=== PATIENT | female | born 1990 | race Caucasian/White ===

== ENCOUNTER → 2025-03-28 13:26 | Outpatient (REF) | payer OTHER, SELFPAY | LOC: PNTC 13:26 | PROVIDERS: ATTENDING PHYSICIAN Obstetrics & Gynecology | DX: O09.529 Supervision of elderly multigravida, unspecified trimester (principal) | CPT/HCPCS: 59025; 76815 ==

== ENCOUNTER → 2025-04-04 13:17 | Outpatient (REF) | payer OTHER, SELFPAY | LOC: PNTC 13:17 | PROVIDERS: ATTENDING PHYSICIAN Obstetrics & Gynecology | DX: O09.529 Supervision of elderly multigravida, unspecified trimester (principal) | CPT/HCPCS: 59025; 76815 ==

== ENCOUNTER → 2025-04-11 13:43 | Outpatient (REF) | payer OTHER, SELFPAY | LOC: PNTC 13:43 | PROVIDERS: ATTENDING PHYSICIAN Obstetrics & Gynecology | DX: O09.529 Supervision of elderly multigravida, unspecified trimester (principal); O09.813 Supervision of pregnancy resulting from assisted reproductive technology, third trimester | CPT/HCPCS: 59025; 76816 ==

== ENCOUNTER 2025-04-14 03:39 | Inpatient (IN) | payer OTHER, SELFPAY ==
[2025-04-14] MEDS: LR 1000 IV ×2 (04:20→18:55)
[2025-04-14 04:25] VITALS: BP 132/84; BMI 29.8
[2025-04-14 04:49] LABS: Hematocrit 35.9 % (37.0-47.0); Hemoglobin 12.3 g/dL (12.0-16.0); Mean Corp Hgb Conc. 34.3 g/dL (33.0-37.0); Mean Corpuscular Volume 87.1 fL (81.0-99.0); Nucleated Red Blood Cells % 0 %; Platelet Count 249 10^3/uL (130-400); Red Cell Dist. Width 13.4 % (11.5-14.5)
[2025-04-14] MEDS: SUBLIMAZE 100 MCG EPIDURAL (05:05)
[2025-04-14] MEDS: FENTANYL/BUPIVACAINE 100 EPIDURAL ×2 (05:06→13:00)
[2025-04-14] MEDS: PITOCIN 30 UNITS/NSS 500 ML IV ×3 (09:30→20:48)
[2025-04-14] MEDS: TRANEXAMIC ACID 100 IV (19:50)
[2025-04-14 20:02] LABS: Cord ABG Comment CORD BLOOD
[2025-04-14 20:04] LABS: Cord ABG Comment CORD BLOOD
[2025-04-14 20:08] LABS: B.E. Cord ABG -8.8 mMOL/L; HCO3 Cord ABG 18.0 mmol/L; O2 Saturation % Cord ABG 53.9 %; PCO2 Cord ABG 41 mmHg; PO2 Cord ABG 28 mmHg; pH Cord ABG 7.25
[2025-04-14 20:10] LABS: B.E. Cord ABG -13.4 mMOL/L; HCO3 Cord ABG 17.7 mmol/L; O2 Saturation % Cord ABG 44.0 %; PCO2 Cord ABG 61 mmHg; PO2 Cord ABG 30 mmHg; pH Cord ABG 7.07
[2025-04-14] MEDS: CYTOTEC 800 MCG SL (20:15)
[2025-04-14] MEDS: HEMABATE 250 MCG IM (20:18)
[2025-04-15] MEDS: SYNTHROID 125 MCG PO (06:22)
[2025-04-15 07:07] LABS: Hematocrit 30.2 % (37.0-47.0); Hemoglobin 10.2 g/dL (12.0-16.0)
[2025-04-15] MEDS: FEOSOL 325 MG PO (08:25)
[2025-04-15] MEDS: COLACE 100 MG PO ×2 (08:25→20:01)
[2025-04-15] MEDS: PRENATAL PLUS 1 TABLET PO (08:25)
[2025-04-16] MEDS: SYNTHROID 125 MCG PO (06:15)
[2025-04-16] MEDS: FEOSOL 325 MG PO (08:32)
[2025-04-16] MEDS: PRENATAL PLUS 1 TABLET PO (08:32)
[2025-04-16] MEDS: COLACE 100 MG PO (08:32)
[2025-04-16] MEDS: TYLENOL 650 MG PO (09:37)
[2025-04-18 13:33] LABS: Syphilis/T. pallidum Ab Reflex Negative (Negative)
== END 2025-04-16 13:20 | disposition home or self-care (01) | DRG 807 ==
LOC: LDRP 03:39
PROVIDERS: Obstetrics & Gynecology; ADMITTING PHYSICIAN Obstetrics & Gynecology
PROC: 10E0XZZ Delivery of Products of Conception, External Approach (ICD-10-PCS; 2025-04-14)
PROC: 0KQM0ZZ Repair Perineum Muscle, Open Approach (ICD-10-PCS; 2025-04-14)
PROC: 10D17Z9 Manual Extraction of Products of Conception, Retained, Via Natural or Artificial Opening (ICD-10-PCS; 2025-04-14)
DX: O75.89 Other specified complications of labor and delivery (principal); Z37.0 Single live birth; O99.284 Endocrine, nutritional and metabolic diseases complicating childbirth; E03.9 Hypothyroidism, unspecified; O69.81X0 Labor and delivery complicated by cord around neck, without compression, not applicable or unspecified; O77.0 Labor and delivery complicated by meconium in amniotic fluid; O70.1 Second degree perineal laceration during delivery; Z3A.39 39 weeks gestation of pregnancy; O72.1 Other immediate postpartum hemorrhage
CPT/HCPCS: 36415; 82803; 85014; 85018; 85025; 86780; 86850; 86900; 86901